=== PATIENT | female | born 1990 | race Caucasian/White ===

== ENCOUNTER 2021-03-19 13:43 | Emergency (ER) | payer BC, OTHER ==
[~2021-03-19] VITALS: Ht 157 cm; Wt 68.0 kg
[2021-03-19 14:00] VITALS: BP 115/53
[2021-03-19] MEDS ORDERED: TRZ50T (14:26)
[2021-03-19] MEDS ORDERED: ESCI20TA39 (14:26)
--- NOTE | 2021-03-19 14:34 | ED Cough/URI ---
General Chief Complaint: COVID19 Suspect/Confirmed Stated Complaint: COVID+; SOB Nursing Triage Note: ARRIVED VIA AMB WITHOUT DIFFICULTY. DAY 10 OF BEING COVID POSITIVE. COMPLAINS OF SOA AND CHEST TIGHTNESS. Source: patient Exam Limitations: no limitations History of Present Illness Date Seen by Provider: Mar 19, 2021 Time Seen by Provider: 14:46 Initial Comments 30yoF otherwise healthy coming in due to chest discomfort and SOB. She has not taken any medications for pain. She is COVID positive and day 10 of symptoms. Initially headaches. Since Friday has felt more short of breath especially with exertion. Take vitamins for COVID per PCP. Allergies and Home Medications Allergies Coded Allergies: amoxicillin (Verified Allergy, Unknown, 03/19/21) Patient Home Medication List Home Medication List Reviewed: Yes Escitalopram Oxalate (Escitalopram Oxalate) 20 Mg Tablet, (Reported) Entered as Reported by: HOUSTON JOY on 03/19/211425 Last Action: New Order Trazodone HCl (Trazodone HCl) 50 Mg Tablet, (Reported) Entered as Reported by: HOUSTON JOY on 03/19/211425 Last Action: New Order Review of Systems Review of Systems Constitutional: No chills, No fever EENTM: No blurred vision Respiratory: cough, short of breath Cardiovascular: No chest pain Gastrointestinal: No abdominal pain, No nausea, No vomiting Genitourinary: no symptoms reported Musculoskeletal: no symptoms reported Skin: no symptoms reported Psychiatric/Neurological: No Symptoms Reported Hematologic/Lymphatic: No Symptoms Reported Past Fqxefaf-Cefofg-Wqnllc Hx Patient Social History Tobacco Use?: No Smoking Status: Never a Smoker Alcohol Use?: No Physical Exam Vital Signs - First Documented 03/19/21 14:00 Pulse 69 Resp 16 B/P (MAP) 115/53 (73) Pulse Ox 100 O2 Delivery Room Air Capillary Refill : Less Than 3 Seconds Height: '" Weight: lbs. oz. kg; 27.00 BMI Method: General Appearance: WD/WN, no apparent distress HEENT: PERRL/EOMI, normal ENT inspection, pharynx normal Neck: non-tender, full range of motion, supple, normal inspection Respiratory: chest non-tender, lungs clear, normal breath sounds, no respiratory distress, no accessory muscle use Cardiovascular: regular rate, rhythm, no edema, no murmur Gastrointestinal: normal bowel sounds, non tender, soft; No distended, No guarding, No rebound Extremities: normal range of motion, non-tender, normal inspection, no pedal edema, no calf tenderness, normal capillary refill Neurologic/Psychiatric: no motor/sensory deficits, alert, normal mood/affect Skin: normal color, warm/dry Lymphatic: no adenopathy Progress/Results/Core Measures Suspected Sepsis SIRS Temperature: Pulse: 69 Respiratory Rate: 16 Blood Pressure 115 /53 Mean: 73 Results/Orders My Orders Orders - STEFF MYERS MD Ekg Tracing (03/19/21 14:44) Chest 1 View Ap/Pa Only (03/19/21 14:44) Vital Signs/I&O 03/19/21 14:00 Pulse 69 Resp 16 B/P (MAP) 115/53 (73) Pulse Ox 100 O2 Delivery Room Air Capillary Refill : Less Than 3 Seconds Blood Pressure Mean: 73 Progress Note : Progress Note 30-year-old female with above history coming in due to shortness of breath in the setting of being Covid positive now on day 11 of symptoms, 10 days after testing. ABCs were intact and vitals were stable on presentation. I personally ambulated the patient around the room and her oxygen saturation stayed at 100% and her heart rate stayed in the 80s. Lungs were clear on exam. She did feel lightheaded with standing, EKG and chest x-ray ordered. EKG without any ischemic findings with normal sinus rhythm as well. Chest x-ray my interpretation without any abnormalities specifically, no pneumonia or pneumothorax. I believe she is stable for discharge with outpatient follow-up. She was sent home with strict return precautions. ECG Initial ECG Impression Date: Mar 19, 2021 Initial ECG Impression Time: 14:54 Initial ECG Rate: 70 Initial ECG Rhythm: Normal Sinus Comment Narrow QRS, normal axis, no significant ST or T wave abnormalities Diagnostic Imaging Diagonstic Imaging: Xray Plain Films/CT/US/NM/MRI: chest Comments [facility] [place], [place] NAME: KIRA MOCTEZUMA [facility] REC#: [id number] PT STATUS: REG ER : 1990 PHYSICIAN: STEFF MYERS MD ADMIT DATE: 03/19/21/ER FS Draft Date of Exam:03/19/21 CHEST 1 VIEW AP/PA ONLY INDICATION: Shortness of breath, COVID. EXAMINATION: Portable chest at 02:35 p.m. FINDINGS: Heart size and pulmonary vascularity are normal. Lungs are clear. There are no effusions or pneumothoraces. IMPRESSION: Negative chest. Dictated on workstation # [id number] Dict: 03/19/21 1453 Trans: 03/19/21 1456 [id number] Interpreted by: CYNTHIA VARGAS MD Electronically signed by: Departure Impression Primary Impression: COVID-19 Additional Impression: Light headed Disposition: 01 HOME, SELF-CARE Condition: Stable Departure-Patient Inst. Decision time for Depature: 15:00 Referrals: JAMEE MATUTE APRN (PCP) Primary Care Physician [facility] (Family) Primary Care Physician Patient Instructions: COVID-19 ED Add. Discharge Instructions: You were seen in the emergency department as you were feeling lightheaded and more short of breath in the setting of being Covid positive. Some patients do tend to get worse around day 10. However, your oxygen is perfect, your chest x- ray looks great, and your lungs sound clear. I recommend buying a pulse oximeter at [facility], or a pharmacy, or even online on [employer]. If your oxygen stays in the 80s despite resting then I recommend coming back to the ER. It is common for people with Covid to have oxygen around 90%. Take Tylenol or ibuprofen for pain or body aches. Come back to the ER if you have any other concerns. All discharge instructions reviewed with patient and/or family. Voiced understanding. STEFF MYERS MD Mar 19, 2021 14:34
--- NOTE | 2021-03-19 14:56 | Diagnostic Imaging Report ---
INDICATION: Shortness of breath, COVID. EXAMINATION: Portable chest at 02:35 p.m. FINDINGS: Heart size and pulmonary vascularity are normal. Lungs are clear. There are no effusions or pneumothoraces. IMPRESSION: Negative chest. Dictated by: Dictated on workstation # [id number]
== END 2021-03-19 15:05 | disposition home or self-care (01) ==
LOC: ER FS 13:46
DX: U07.1 COVID-19 (principal); R42 Dizziness and giddiness
CPT/HCPCS: 71045; 93005

== ENCOUNTER 2021-05-25 21:16 | Emergency (ER) | payer BC ==
[~2021-05-25] VITALS: Ht 157 cm; Wt 71.2 kg
[~2021-05-25 21:16] MED LIST: ESCI20TA39; TRZ50T
[2021-05-25 21:20] VITALS: BP 118/72
--- NOTE | 2021-05-25 21:25 | ED GU-Female ---
General Stated Complaint: LEFT SIDE PAIN,BLOOD ON URINATION History of Present Illness Date Seen by Provider: May 25, 2021 Time Seen by Provider: 21:25 Initial Comments 30-year-old female presents with some left-sided lower abdominal pain. She reports is been going on for about 1/2 to 2 days. Patient reports that she has had some gross blood in her urine for about 3 days. Patient does have a prior history of kidney stones. She has some nausea but no vomiting. No fever or chills. She denies any vaginal bleeding or discharge. She denies any vomiting with her nausea. Reports that she cannot get a comfortable position. Nothing seems to make it worse or better. Allergies and Home Medications Allergies Coded Allergies: amoxicillin (Verified Allergy, Unknown, 03/19/21) Patient Home Medication List Home Medication List Reviewed: Yes Escitalopram Oxalate (Escitalopram Oxalate) 20 Mg Tablet, (Reported) Entered as Reported by: HOUSTON JOY on 03/19/21 142 Trazodone HCl (Trazodone HCl) 50 Mg Tablet, (Reported) Entered as Reported by: HOUSTON JOY on 03/19/21 142 Review of Systems Review of Systems Constitutional: No chills, No fever Respiratory: no symptoms reported Cardiovascular: no symptoms reported Gastrointestinal: abdominal pain; No constipation, No diarrhea; nausea; No vomiting Genitourinary: see HPI, hematuria Musculoskeletal: no symptoms reported Skin: no symptoms reported Psychiatric/Neurological: No Symptoms Reported Physical Exam Vital Signs Vital Signs - First Documented 05/25/21 21:20 Temp 36.8 Pulse 77 Resp 16 B/P (MAP) 118/72 (87) Pulse Ox 98 O2 Delivery Room Air Capillary Refill : Height, Weight, BMI Height: '" Weight: lbs. oz. kg; 27.00 BMI Method: General Appearance: mild distress Cardiovascular: normal peripheral pulses, regular rate, rhythm Respiratory: lungs clear, normal breath sounds Gastrointestinal: soft, tenderness (Mild tenderness left lower quadrant) Back: no CVA tenderness Extremities: non-tender, normal inspection Neurologic/Psychiatric: alert, normal mood/affect, oriented x 3 Skin: normal color, warm/dry Progress/Results/Core Measures Suspected Sepsis SIRS Temperature: Pulse: Respiratory Rate: Laboratory Tests 05/25/21 21:35: White Blood Count 13.1H Blood Pressure / Mean: Laboratory Tests 05/25/21 21:35: Creatinine 0.69, Platelet Count 234, Total Bilirubin 0.2 Results/Orders Lab Results Laboratory Tests Test 05/25/21 21:25 05/25/21 21:35 Range/Units Urine Color YELLOW Urine Clarity CLEAR Urine pH 6.5 5-9 Urine Specific [place] 1.010 L 1.016-1.022 Urine Protein NEGATIVE NEGATIVE Urine Glucose (UA) NEGATIVE NEGATIVE Urine Ketones NEGATIVE NEGATIVE Urine Nitrite NEGATIVE NEGATIVE Urine Bilirubin NEGATIVE NEGATIVE Urine Urobilinogen 0.2 < = 1.0 MG/DL Urine Leukocyte Esterase NEGATIVE NEGATIVE Urine RBC (Auto) 2+ H NEGATIVE Urine RBC 0-2 /HPF Urine WBC NONE /HPF Urine Squamous Epithelial Cells 5-10 /HPF Urine Crystals NONE /LPF Urine Bacteria TRACE /HPF Urine Casts NONE /LPF Urine Mucus NEGATIVE /LPF Urine Culture Indicated NO Urine Test NEGATIVE NEGATIVE White Blood Count 13.1 H 4.3-11.0 10^3/uL Red Blood Count 4.77 3.80-5.11 10^6/uL Hemoglobin 12.7 11.5-16.0 g/dL Hematocrit 39 35-52 % Mean Corpuscular Volume 81 80-99 fL Mean Corpuscular Hemoglobin 27 25-34 pg Mean Corpuscular Hemoglobin Concent 33 32-36 g/dL Red Cell Distribution Width 16.9 H 10.0-14.5 % Platelet Count 234 130-400 10^3/uL Mean Platelet Volume 10.9 9.0-12.2 fL Immature Granulocyte % (Auto) 0 % Neutrophils (%) (Auto) 57 42-75 % Lymphocytes (%) (Auto) 32 12-44 % Monocytes (%) (Auto) 8 0-12 % Eosinophils (%) (Auto) 2 0-10 % Basophils (%) (Auto) 1 0-10 % Neutrophils # (Auto) 7.5 1.8-7.8 X 10^3 Lymphocytes # (Auto) 4.2 H 1.0-4.0 X 10^3 Monocytes # (Auto) 1.0 0.0-1.0 X 10^3 Eosinophils # (Auto) 0.3 0.0-0.3 10^3/uL Basophils # (Auto) 0.1 0.0-0.1 10^3/uL Immature Granulocyte # (Auto) 0.0 0.0-0.1 10^3/uL Sodium Level 139 135-145 MMOL/L Potassium Level 4.0 3.6-5.0 MMOL/L Chloride Level 105 98-107 MMOL/L Carbon Dioxide Level 25 21-32 MMOL/L Anion Gap 9 5-14 MMOL/L Blood Urea Nitrogen 7 7-18 MG/DL Creatinine 0.69 0.60-1.30 MG/DL Estimat Glomerular Filtration Rate 99 BUN/Creatinine Ratio 10 Glucose Level 85 70-105 MG/DL Calcium Level 9.1 8.5-10.1 MG/DL Corrected Calcium 9.1 8.5-10.1 MG/DL Total Bilirubin 0.2 0.1-1.0 MG/DL Aspartate Amino Transf (AST/SGOT) 17 5-34 U/L Alanine Aminotransferase (ALT/SGPT) 12 0-55 U/L Alkaline Phosphatase 117 40-136 U/L Total Protein 7.1 6.4-8.2 GM/DL Albumin 4.0 3.2-4.5 GM/DL My Orders Orders - MUNOZ,MARGUERITE L DO Cbc With Automated Diff (05/25/21 21:28) Comprehensive Metabolic Panel (05/25/21 21:28) Hcg,Qualitative Urine (05/25/21 21:28) Ua Culture If Indicated (05/25/21 21:28) Ct Abdomen/Pelvis Wo (05/25/21 21:28) Ed Iv/Invasive Line Start (05/25/21 21:28) Metoclopramide Injection (Reglan Injecti (05/25/21 21:28) Ns Iv 1000 Ml (Sodium Chloride 0.9%) (05/25/21 21:28) Ketorolac Injection (Toradol Injection) (05/25/21 21:28) Vital Signs/I&O 05/25/21 05/25/21 21:20 22:52 Temp 36.8 Pulse 77 73 Resp 16 15 B/P (MAP) 118/72 (87) 118/53 Pulse Ox 98 99 O2 Delivery Room Air Room Air Capillary Refill : Progress Note : Progress Note Patient with slight elevated white count and some mild hematuria. Patient's labs otherwise normal. Patient shows no acute findings on CT abdomen pelvis. Patient seemed to have some discomfort and I questioned her multiple times to be sure it was not vaginal bleeding or pain in her pelvis. Patient continually denied pelvic pain or vaginal bleeding. After discussing findings with patient I recommended she follow-up with her primary care outpatient if her symptoms are not improving. At this time I do not feel antibiotic is warranted since she has a slight elevation of white count but I do not have any source. Patient stable upon discharge, she should return the ER as needed Diagnostic Imaging Diagonstic Imaging: CT Plain Films/CT/US/NM/MRI: abdomen Comments Date of Exam:05/25/21 CT ABDOMEN/PELVIS WO INDICATION: Left flank pain. TECHNIQUE: Multiple contiguous axial images were obtained through the abdomen and pelvis without the use of intravenous contrast. Auto Exposure Controls were utilized during the CT exam to meet ALARA standards for radiation dose reduction. COMPARISON: There is no prior CT of the abdomen and pelvis for comparison. FINDINGS: The visualized portions of the lung bases are clear. There are no pleural fluid collections. There is no free intraperitoneal air. The liver shows no focal lesion. Gallbladder is absent. Spleen, adrenals and pancreas are normal. The kidneys, bilaterally, show no radiopaque calculi or hydronephrosis. There is no retroperitoneal mass or adenopathy. There is no ascites or abnormal fluid collection. Visualized bowel loops appear unremarkable. There is no adnexal mass or free fluid. IMPRESSION: Negative CT of the abdomen and pelvis without contrast. Reviewed: Reviewed/Discussed Departure Impression Primary Impression: Hematuria Qualified Codes: R31.9 - Hematuria, unspecified Additional Impression: Left-sided abdominal pain of unknown etiology Disposition: 01 HOME, SELF-CARE Condition: Stable Departure-Patient Inst. Referrals: JAMEE MATUTE APRN (PCP) Primary Care Physician [facility] (Family) Primary Care Physician Patient Instructions: Abdominal Pain, Adult ED, Blood in the Urine (Hematuria) in Adults Add. Discharge Instructions: Follow-up with your primary care provider next week for recheck of your urine and symptoms Return to the ER as needed if symptoms continue to worsen or you develop additional symptoms You may use Tylenol, ibuprofen and Azo/Pyridium for pain control MARGUERITE MUNOZ DO May 25, 2021 21:25
[2021-05-25] MEDS ORDERED: NS IV 1000 ML 1,000 ML IV STA (21:28)
[2021-05-25] MEDS ORDERED: METOCLOPRAMIDE INJ 10 MG/2 ML (REGLAN) IVP STA (21:28)
[2021-05-25] MEDS ORDERED: KETOROLAC 30 MG/ML VIAL IVP STA (21:28)
[2021-05-25 21:36] LABS: BACTERIA,URINE TRACE /HPF; BILIRUBIN,URINE NEGATIVE (NEGATIVE); CLARITY,URINE CLEAR; COLOR,URINE YELLOW; GLUCOSE, URINE (UA) NEGATIVE (NEGATIVE); KETONES,URINE NEGATIVE (NEGATIVE); LEUKOCYTE ESTERASE ,URINE NEGATIVE (NEGATIVE); NITRITE,URINE NEGATIVE (NEGATIVE); PH,URINE 6.5 (5-9); PROTEIN,URINE NEGATIVE (NEGATIVE); RBC,URINE 0-2 /HPF
[2021-05-25 21:48] LABS: BASOPHILS # (AUTO) 0.1 10^3/uL (0.0-0.1); BASOPHILS % (AUTO) 1 % (0-10); EOSINOPHILS # (AUTO) 0.3 10^3/uL (0.0-0.3); EOSINOPHILS % (AUTO) 2 % (0-10); HEMATOCRIT 39 % (35-52); HEMOGLOBIN 12.7 g/dL (11.5-16.0); LYMPHOCYTES # (AUTO) 4.2 X 10^3 (1.0-4.0); LYMPHOCYTES % (AUTO) 32 % (12-44); MEAN CORPUSCULAR HEMOGLOBIN 27 pg (25-34); MEAN CORPUSCULAR HGB CONC 33 g/dL (32-36); MEAN CORPUSCULAR VOLUME 81 fL (80-99); MEAN PLATELET VOLUME 10.9 fL (9.0-12.2); MONOCYTES % (AUTO) 8 % (0-12); NEUTROPHILS # (AUTO) 7.5 X 10^3 (1.8-7.8); NEUTROPHILS % (AUTO) 57 % (42-75); PLATELET COUNT 234 10^3/uL (130-400); WHITE BLOOD COUNT 13.1 10^3/uL (4.3-11.0)
[2021-05-25 22:05] LABS: BILIRUBIN,TOTAL 0.2 MG/DL (0.1-1.0); CALCIUM 9.1 MG/DL (8.5-10.1); CREATININE SERUM 0.69 MG/DL (0.60-1.30); TOTAL PROTEIN 7.1 GM/DL (6.4-8.2)
--- NOTE | 2021-05-25 22:13 | Diagnostic Imaging Report ---
INDICATION: Left flank pain. TECHNIQUE: Multiple contiguous axial images were obtained through the abdomen and pelvis without the use of intravenous contrast. Auto Exposure Controls were utilized during the CT exam to meet ALARA standards for radiation dose reduction. COMPARISON: There is no prior CT of the abdomen and pelvis for comparison. FINDINGS: The visualized portions of the lung bases are clear. There are no pleural fluid collections. There is no free intraperitoneal air. The liver shows no focal lesion. Gallbladder is absent. Spleen, adrenals and pancreas are normal. The kidneys, bilaterally, show no radiopaque calculi or hydronephrosis. There is no retroperitoneal mass or adenopathy. There is no ascites or abnormal fluid collection. Visualized bowel loops appear unremarkable. There is no adnexal mass or free fluid. IMPRESSION: Negative CT of the abdomen and pelvis without contrast. Dictated by: Dictated on workstation # [id number]
== END 2021-05-25 22:45 | disposition home or self-care (01) ==
LOC: EDUNIT# 21:16 → ER FS 21:18
DX: R31.9 Hematuria, unspecified (principal); R10.32 Left lower quadrant pain
CPT/HCPCS: 36415; 74176; 80053; 81000; 84703; 85025

== ENCOUNTER 2022-01-03 11:28 | Emergency (ER) | payer OTHER, BC ==
[~2022-01-03] VITALS: Ht 157 cm; Wt 71.0 kg
[2022-01-03] MEDS: ORPHENADRINE 60 MG/2 ML (NORFLEX) AMP (ED ONLY) IM STA (11:41)
[2022-01-03] MEDS: KETOROLAC 60 MG/2 ML VIAL IM STA (11:41)
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
[2022-01-03] MEDS ORDERED: IBUP-1780 PO (12:51)
[2022-01-03] MEDS ORDERED: METH-732 PO (12:51)
[2022-01-03 12:52] VITALS: BP 122/70
== END 2022-01-03 12:52 | disposition home or self-care (01) ==
LOC: ER FS 11:28 → EDUNIT# 11:28 → ER FS 12:52
DX: S16.1XXA Strain of muscle, fascia and tendon at neck level, initial encounter (principal); M40.40 Postural lordosis, site unspecified; V47.5XXA Car driver injured in collision with fixed or stationary object in traffic accident, initial encounter; Y92.410 Unspecified street and highway as the place of occurrence of the external cause
CPT/HCPCS: 70450; 72125

== ENCOUNTER 2022-01-19 23:12 | Emergency (ER) | payer BC, OTHER ==
[~2022-01-19] VITALS: Ht 157 cm; Wt 72.5 kg
[~2022-01-19 23:12] MED LIST changes: +IBUP-1780 PO; +METH-732 PO
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
[2022-01-20 00:15] VITALS: BP 125/74
--- NOTE | 2022-01-20 07:12 | Diagnostic Imaging Report ---
INDICATION: Foot pain, injury. EXAMINATION: Right foot 01/19/2022 FINDINGS: 3 views of the foot. There are hyperdensities within the soft tissues of the 2nd and 3rd toes distally; this could overlie the patient or may be subcutaneous, correlate clinically. There are no acute fractures or dislocations. Joint spaces preserved. IMPRESSION: 1. Densities in the soft tissues of the 2nd and to a lesser degree 3rd distal toe which may or may not overlie the patient, correlate clinically for possible foreign bodies. 2. No fractures. Dictated by: Dictated on workstation # [id number]
== END 2022-01-20 00:16 | disposition home or self-care (01) ==
LOC: EDUNIT# 23:12 → ER FS 23:13
DX: S90.31XA Contusion of right foot, initial encounter (principal); X50.1XXA Overexertion from prolonged static or awkward postures, initial encounter; Z28.310 Unvaccinated for COVID-19
CPT/HCPCS: 73630